=== PATIENT | male | born 1990 | race Caucasian/White ===

== ENCOUNTER 2016-04-14 10:34 | Emergency (ER) | payer SELFPAY ==
[2016-04-14] MEDS ORDERED: NS 0.9% 1000 ML* 1,000 ML IV ONE (10:50)
[2016-04-14 11:31] LABS: Hematocrit 47 % (42-52); Hemoglobin 15.6 g/dl (14.0-18.0); Mean Corpuscular HGB Conc 33 g/dl (31-36); Mean Corpuscular Hemoglobin 28 pg (27-31); Mean Corpuscular Volume 85 fL (80-94); Mean Platelet Volume 8 um3 (7.4-10.4); Red Cell Distribution Width 14 % (10.5-15); White Blood Count 9.5 10^3/ul (3.5-10.8)
[2016-04-14 11:42] LABS: ALT 21 U/L (7-52); AST 14 U/L (13-39); Albumin 3.8 g/dL (3.2-5.2); Alkaline Phosphatase 43 U/L (34-104); Amylase 33 U/L (29-103); Anion Gap 5 mmol/L (2-11); BUN/Creatinine Ratio 9.7 (8-20); Blood Urea Nitrogen 9 mg/dL (6-24); C Reactive Protein 42.15 mg/L (< 5.00); CO2 Carbon Dioxide 27 mmol/L (22-32); Calcium 8.9 mg/dL (8.6-10.3); Chloride 105 mmol/L (101-111); EGFR African American 126.3 (>60); EGFR Non-African American 98.2 (>60); Glucose 101 mg/dL (70-100); Lipase < 10 U/L (11.0-82.0); Potassium 3.5 mmol/L (3.5-5.0); Sodium 137 mmol/L (133-145); Total Protein 6.8 g/dL (6.4-8.9)
--- NOTE | 2016-04-14 12:16 | RAD ---
INDICATION: Right upper quadrant pain. COMPARISON: There are no prior studies available for comparison. TECHNIQUE: Multiple real-time images of the right upper quadrant were obtained. The exam is limited due to the patient's body habitus. FINDINGS: The gallbladder appear normal. No gallbladder wall thickening or pericholecystic fluid is present. No intra or extrahepatic ductal distention is present. The common bile duct is not well visualized. The liver is normal in size and increased in echogenicity most consistent with fatty infiltration. No focal hepatic abnormality is seen. The pancreas is partially obscured by overlying bowel gas. The right kidney is normal in size without evidence for hydronephrosis. IMPRESSION: 1. NORMAL EXAMINATION OF THE GALLBLADDER. 2. THE LIVER IS INCREASED IN ECHOGENICITY MOST CONSISTENT WITH FATTY INFILTRATION.
[2016-04-14] MEDS ORDERED: Iohexol 300* (CONTRAST) 10 ML SDV IV ONE (12:53)
[2016-04-14 13:17] LABS: Urine Bilirubin Negative (Negative); Urine Glucose Negative (Negative); Urine Nitrite Negative (Negative)
--- NOTE | 2016-04-14 13:33 | RAD ---
INDICATION: Abdominal pain. COMPARISON: Comparison is made with a prior right upper quadrant abdominal ultrasound of the same date. TECHNIQUE: A CT scan of the abdomen and pelvis was performed with intravenous and without oral contrast following intravenous injection of 150 ml of Omnipaque 300 nonionic contrast. Contiguous axial sections were obtained from the lung bases through the symphysis pubis. Images were reconstructed in the coronal and sagittal planes. FINDINGS: The lung bases are clear. No pleural effusion is present. The liver and spleen are mildly enlarged without significant focal abnormality. The liver is decreased in attenuation consistent with fatty infiltration. No calcified gallstones or gallbladder wall thickening is present. The pancreas appears to be within normal limits. The kidneys and adrenal glands are normal in size. No hydronephrosis is seen. There are several small subcentimeter cyst present within the left kidney. There is mild thickening of the wall of the urinary bladder which is likely due to incomplete distention. The aorta is normal in caliber and demonstrates homogeneous contrast opacification. No significant enlarged retroperitoneal lymph nodes are seen. There are mildly prominent mesenteric lymph nodes present in the left upper quadrant measuring up to 1.1 cm in transverse dimension. The stomach, small and large bowel appear nondistended. The appendix is within normal limits. There is mild descending and sigmoid diverticulosis without evidence for diverticulitis. No free intraperitoneal air or fluid is seen. No significant focal osseous abnormality is seen. IMPRESSION: 1. NO EVIDENCE FOR ACUTE FINDING OR CAUSE FOR THE PATIENT'S ABDOMINAL PAIN IS SEEN. 2. MILD HEPATOSPLENOMEGALY AND HEPATIC STEATOSIS. 3. MILDLY PROMINENT MESENTERIC LYMPH NODES IN THE LEFT UPPER QUADRANT.
[2016-04-14] MEDS ORDERED: Ketorolac INJ* 30 MG/ML 1 ML VIAL IM ONE (14:21)
--- NOTE | 2016-04-14 14:45 | ED ---
Osmar Kessler Billy, scribed for Tye Reese MD on 04/14/16 at 1105 . Abdominal Pain/Male - HPI Summary HPI Summary: Patient is a 26 year-old male coming to [facility] presenting with constant abdominal pain since 2 days ago. He states that the pain began in the umbilical region and radiates to the RUQ. Positive nausea without any vomiting or diarrhea. He reports decreased appetite since onset. Pain severity is 2/10 and worse with movement, improved with rest. - History of Current Complaint Chief Complaint: EDAbdPain Stated Complaint: ABD PAIN Time Seen by Provider: 04/14/16 10:42 Hx Obtained From: Patient Onset/Duration: Gradual Onset, Lasting Days, Still Present Timing: Constant Severity Initially: Moderate Severity Currently: Moderate Pain Intensity: 2 Pain Scale Used: 0-10 Numeric Location: Umbilical Radiates: Yes Radiates to: Other - RUQ Aggravating Factor(s): Movement Alleviating Factor(s): Other: - rest Associated Signs And Symptoms: Positive: Nausea. Negative: Vomiting, Diarrhea - Allergies/Home Medications Allergies/Adverse Reactions: Allergies Allergy/AdvReac Type Severity Reaction Status Date / Time BEES Allergy Edema Uncoded 04/14/16 10:38 ENVIRONMENTAL Allergy Congestion Uncoded 04/14/16 10:38 PMH/Surg Hx/FS Hx/Imm Hx Cardiovascular History: Reports: Hx Hypertension - ON MEDS Denies: Hx Pacemaker/ICD, Other Cardiovascular Problems/Disorders Respiratory History: Denies: Other Respiratory Problems/Disorders GI History: Denies: Other GI Disorders Musculoskeletal History: Denies: Other Musculoskeletal History Sensory History: Reports: Hx Contacts or Glasses - GLASSES Denies: Hx Hearing Aid Opthamlomology History: Reports: Hx Contacts or Glasses - GLASSES Neurological History: Reports: Hx Migraine - FROM HTN, [place] ON MEDS Denies: Other Neuro Impairments/Disorders Psychiatric History: Denies: Hx Panic Disorder - Surgical History Surgery Procedure, Year, and Place: WISDOM TEETH Hx Anesthesia Reactions: No Infectious Disease History: No Infectious Disease History: Denies: Traveled Outside the [place] in Last 30 Days - Family History Known Family History: Negative: Cardiac Disease, Hypertension, Diabetes - Social History Alcohol Use: Rare Alcohol Amount: 10-20 PER YEAR Substance Use Type: Reports: None Smoking Status (MU): Never Smoked Tobacco Have You Smoked in the Last Year: No Review of Systems Negative: Fever Positive: Abdominal Pain, Nausea, Other - decreased appetite. Negative: Vomiting, Diarrhea All Other Systems Reviewed And Are Negative: Yes Physical Exam - Summary Physical Exam Summary: VITAL SIGNS: Reviewed. GENERAL: Patient is an obese male who is lying comfortable in the stretcher. Patient is not in any acute respiratory distress. HEAD AND FACE: Normocephalic and atraumatic. EYES: PERRLA, EOMI x 2, No injected conjunctiva. EARS: Hearing grossly intact. Ear canals and tympanic membranes are WNL. MOUTH: Oropharynx within normal limits. NECK: Supple, trachea is midline, no adenopathy, no JVD. CHEST: Symmetric, no tenderness at palpation LUNGS: Clear to auscultation bilaterally. No wheezing or crackles. CVS: RRR,, S1 and S2 present, no murmurs or gallops appreciated. ABDOMEN: Soft, RUQ tenderness. No signs of distention. Positive bowel sounds. No rebound no guarding, and no masses palpated. No abdominal bruit or pulsations. EXTREMITIES: FROM in all major joints, no edema, no cyanosis or clubbing. NEURO: Alert and oriented x 3. No acute neurological deficits. Speech is normal. SKIN: Dry and warm Triage Information Reviewed: Yes Vital Signs On Initial Exam: Initial Vitals Temp Pulse Resp BP Pulse Ox 98.2 F 76 18 149/102 100 04/14/16 10:38 04/14/16 10:38 04/14/16 10:38 04/14/16 10:38 04/14/16 10:38 Vital Signs Reviewed: Yes Diagnostics - Vital Signs Vital Signs Temp Pulse Resp BP Pulse Ox 04/14/16 10:38 98.2 F 76 18 149/102 100 - Laboratory Result Diagrams: 04/14/16 11:16 04/14/16 11:16 Lab Statement: Any lab studies that have been ordered have been reviewed, and results considered in the medical decision making process. - Ultrasound No standard instances Ultrasound Interpretation Completed By: Radiologist - GALLBLADDER ULTRASOUND: 1. NORMAL EXAMINATION OF THE GALLBLADDER. 2. THE LIVER IS INCREASED IN ECHOGENICITY MOST CONSISTENT WITH FATTY INFILTRATION. Re-Evaluation - Re-Evaluation First Eval Re-Evaluation Time: 12:40 Change: Improved Comment: Agrees to plan for further CT imaging of the abd/pel. Second Eval Re-Evaluation Time: 14:22 Change: Improved Comment: Labs and imaging reviewed. Abdominal Pain Fem Course/Dx - Course Assessment/Plan: Patient is a 26 year-old male [facility] presenting with constant abdominal pain since 2 days ago. He states that the pain began in the umbilical region and radiates to the RUQ. Positive nausea without any vomiting or diarrhea. He reports decreased appetite since onset. Pain severity is 2/10 and worse with movement, improved with rest. Bloodwork WNL except for glucose of 101 and CRP of 42.1. UA is negative for UTI. RUQ US shows normal examination of the gallbladder and fatty liver. CT abd/pel shows no evidence of acute findings for the patient's cause of abdominal pain. In the ED course, patient was given Toradol for the pain, with improvement. Therefore, the patient will be discharged home to follow up with PCP. Patient was instructed to return with worsening symptoms. He understands and agrees. A&Ox3, hemodynamically stable. I discussed all the findings and test results with the patient. Patient was instructed to return to the emergency room immediately if any of the symptoms return or worsens. They were explained the possibility of an early abdominal pathology which was not detected at this time despite the physical exam and testing. They understand and agree. Abdominal exam before discharge: Soft, NT. No signs of distention. BS present. No rebound no guarding, and no masses palpated. Patient is alert and oriented and hemodynamically stable. Patient is to follow up with primary care physician in the next 2 to 3 days. Patient agree and understands. - Diagnoses Differential Diagnosis/HQI/PQRI: Gall Bladder Disease, Hepatitis, Pancreatitis, Ureteral Stone, Urinary Tract Infection Provider Diagnoses: Abdominal pain Discharge - Discharge Plan Condition: Stable Disposition: HOME Patient Education Materials: Abdominal Pain (ED) Referrals: [facility] PHYSICIAN REFERRAL [Outside] The documentation as recorded by the Osmar mercado Billy accurately reflects the service I personally performed and the decisions made by me, Tye Reese MD.
[2016-04-14 14:54] VITALS: BP 153/85
== END 2016-04-14 14:52 | disposition home or self-care (01) ==
LOC: ED 10:34
DX: R10.11 Right upper quadrant pain (principal)
CPT/HCPCS: 36415; 74177; 76705; 80053; 81003; 82150; 83690; 85025; 86140; 86703; 96360; 96372; 99283; J1885; Q9967